=== PATIENT | female | born 1990 | race Caucasian/White ===

== ENCOUNTER 2022-12-31 23:21 | Emergency (ER) | payer OTHER, SELFPAY ==
[2022-12-31 23:23] VITALS: BP 133/88; PULSE 102; RESP 18; TEMP 36.6; O2SAT 100
--- NOTE | 2023-01-01 00:01 | ED.ABDPAIN ---
HPI - Abdominal Pain General Chief Complaint: GENERAL CLAIMS AGENT Stated Complaint: Abdominal Source: patient Mode of arrival: ambulatory Limitations: no limitations History of Present Illness HPI narrative: 32-year-old female status post BTL presents to the ER with a 2 day history of -- right lower quadrant abdominal pain. No nausea or vomiting. No dysuria. No abnormal vaginal discharge. No fever or chills the patient had been playing soccer with her kids 2 days ago. MD elicited complaint: abdominal pain Pertinent past history: none Onset (ago): day(s) ( Started 2 days ago) Pain Consistency: constant and other ( pain is constant with intermittent sharp exacerbation) Location: other ( right inguinal region) Severity: severe Quality: aching Radiation: none Migration to: no migration Exacerbating factors: movement Relieving factors: nothing Associated symptoms: denies other symptoms Related Data Home Medications Medication Instructions Recorded Confirmed No Home Medications 12/31/22 12/31/22 Allergies Allergy/AdvReac Type Severity Reaction Status Date / Time No Known Allergies Allergy Mild Verified 12/31/22 23:46 Review of Systems Review of Systems: All systems reviewed & are unremarkable except as noted in HPI and below Constitutional: Constitutional: Reports as per HPI and Reports no additional constitutional complaints Eyes: Eyes: Reports as per HPI and Reports no additional eye complaints ENT: Reports system reviewed and no additional complaints, except as documented and Reports as per HPI Cardiovascular: Cardiovascular: Reports as per HPI and Reports no additional cardiovascular complaints Respiratory: Respiratory: Reports as per HPI and Reports no additional respiratory complaints Gastrointestinal: Gastrointestinal: Reports as per HPI, Reports no additional gastrointestinal complaints and Reports abdominal pain Genitourinary: Genitourinary: Reports no additional female genitourinary complaints and Reports as per HPI Musculoskeletal: Musculoskeletal: Reports no additional musculoskeletal complaints and Reports as per HPI Integumentary/Breasts: Skin/Breast: Reports system reviewed and no additional complaints, except as docu and Reports as per HPI Neurologic: Reports system reviewed and no additional complaints, except as documented and Reports as per HPI Psychiatric: Psychiatric: Reports no additional psychiatric complaints and Reports as per HPI Endocrine: Endocrine: Reports no additional endocrine complaints and Reports as per HPI Hematologic/Lymphatic: Hematologic/Lymphatic: Reports no additional hematologic/lymphatic complaints and Reports as per HPI Allergic/Immunologic: Allergic/Immunologic: Reports no additional allergic/immunologic complaints and Reports as per HPI Exam Const: General: no acute distress Orientation/consciousness: patient oriented x3 HENMT: Head: normal to inspection Ears: external ears normal Face/Nose/Sinus: Normal external nose present Face and sinus: normal facial exam Mouth: Yes Normal oral and palatal mucosa present Throat: posterior oropharynx normal Eyes: Conjunctivae: conjunctivae normal Pupils: Equal, round and reactive pupils present EOM: EOMs intact bilaterally Direct Ophthalmoscopy: no photophobia Neck: Neck: normal visual inspection, no lymphadenopathy and no meningeal signs Chest: Chest palpation & inspection: normal inspection of the chest Resp: Effort & Inspection: normal respiratory effort Auscultation: clear to auscultation bilaterally Cardio: Rate: regular rate Rhythm: regular rhythm GI: GI Palp: Yes Soft to palpation Auscultation: normal bowel sounds Other: tenderness over the right inguinal region : General: Yes no CVA tenderness Urinary Catheter: Urinary Catheter: patent and draining Back/Spine/Pelvis: Back: no CVA tenderness Skin: General skin exam: normal color Rashes: no rashes Wounds: no wounds Neuro: General: patient oriente
[2023-01-01 00:28] LABS: Basophils Absolute Auto 0.01 K/mm3 (0.00-0.10); Basophils Percent Auto 0.1 % (0.0-1.0); Eosinophils Percent Auto 1.4 % (1.0-6.0); Hematocrit 37.8 % (35.0-49.0); Hemoglobin 12.5 g/dL (12.0-15.0); Immature Granulocyte Absolute 0.01 K/mm3 (0.00-0.00); Immature Granulocyte Percent A 0.1 % (0.0-0.0); Lymphocytes Absolute Auto 2.97 K/mm3 (1.10-4.50); Lymphocytes Percent Auto 41.8 % (18.0-42.0); Mean Corpuscular HGB Conc 33.1 g/dL (32.0-36.0); Mean Corpuscular Hemoglobin 31.3 pg (27.0-31.0); Mean Corpuscular Volume 94.5 fL (78.0-102.0); Mean Platelet Volume 9.6 fl (9.2-11.8); Monocytes Absolute Auto 0.53 K/mm3 (0.10-0.90); Monocytes Percent Auto 7.5 % (2.0-11.0); Neutrophils Absolute Auto 3.5 K/mm3 (1.7-7.2); Neutrophils Percent Auto 49.1 % (50.0-70.0); Platelet Count Result 213 K/mm3 (150-420); Red Cell Distribution Width 13.6 % (11.6-14.4); White Blood Count 7.1 K/mm3 (4.8-10.8)
[2023-01-01 00:36] LABS: Alanine Aminotransferase 20 U/L (14-59); Albumin Level 3.8 g/dL (3.4-5.0); Alkaline Phosphatase 62 U/L (46-116); Anion Gap 8 mmol/L (8-16); Aspartate Amino Transferase 17 U/L (15-37); Bilirubin,Total 0.3 mg/dL (0.00-1.00); Blood Urea Nitrogen 12 mg/dL (7-18); Calcium 8.5 mg/dL (8.5-10.1); Carbon Dioxide 29 mmol/L (21-32); Chloride 104 mmol/L (98-108); Estimated CRCL calculation 72 ml/min; Estimated Glomerular Filt Rate > 60; Glucose 104 mg/dL (70-99); Lipase 31 U/L (16-77); Osmolality Calculated 291 mOsm/kg (285-295); Potassium 3.4 mmol/L (3.5-5.1); Sodium 141 mmol/L (136-145); Total Protein 7.1 g/dL (6.4-8.2)
[2023-01-01 00:39] LABS: Appearance Urine Clear (Clear); Bilirubin Urine Negative (Negative); Blood Urine Negative (Negative); Color Urine Light Yellow (Yellow); Glucose Urine UA Negative (Negative); Ketones Urine Negative (Negative); Leukocyte Esterase Ur Negative LEU/UL (Negative); Nitrate Urine Negative (Negative); Protein Urine Negative (Negative); Specific Grav Ur 1.025 (1.010-1.020); Urobilinogen Urine 0.2 mg/dL (0.2-1.0)
[2023-01-01 00:40] LABS: Add Urine Microscopic? NO
[2023-01-01] MEDS: POTASSIUM CHLORIDE 20 MEQ TABLET PO (01:09)
[2023-01-01 01:20] VITALS: BP 114/78; PULSE 98; RESP 18; TEMP 36.4; O2SAT 99
== END 2023-01-01 01:26 | disposition home or self-care (01) ==
PROVIDERS: Emergency Provider Internal Medicine Critical Care Medicine
DX: M24.29 Disorder of ligament, other specified site (principal)
CPT/HCPCS: 36415; 80053; 81003; 83690; 85025; 99283; A9270

== ENCOUNTER 2023-11-07 10:27 | Outpatient (CLI) | payer OTHER, SELFPAY ==
--- NOTE | ~2023-11-07 | XR_ITS ---
Lumbosacral Spine: AP and lateral views Clinical History: Pain Findings: The normal lordotic curve is maintained. No fracture or sublocation evident. There is sever e degenerative disc narrowing at L2-L3. There is minimal facet arthropathy. The sacroiliac joints are normally outlined. There is a 1.3 cm calcified round lesion in the right mid abdomen, of uncertain e tiology. Impression: Degenerative change, overall mild in degree, as detailed above. Indeterminate 1.3 cm densely calcified lesion right mid abdomen. Reviewed, dictated and finalized at location M. SITE WASTEWATER SYSTEMS TECHNICIAN Impression: Degenerative change, overall mild in degree, as detailed above. Indeterminate 1.3 cm densely calcified lesion right mid abdomen.
--- NOTE | ~2023-11-07 | XR_ITS ---
Cervical Spine: AP, lateral, open-mouth views Clinical History: Pain Findings: The normal lordotic curve is maintained. The vertebral bodies and posterior elements appea r intact. The intervertebral disc spaces are well maintained. Pre-vertebral soft tissues are unremar kable. Impression: No significant abnormality is seen. Reviewed, dictated and finalized at [facility]. CTOR OF SUSTAINABILITY PROGRAMS Impression: No significant abnormality is seen.
== END 2023-11-07 10:28 | disposition home or self-care (01) ==
LOC: CHSIMG 10:29
PROVIDERS: PCP Family Medicine; Visit Provider Registered Nurse
DX: M54.2 Cervicalgia (principal); M54.16 Radiculopathy, lumbar region; R93.5 Abnormal findings on diagnostic imaging of other abdominal regions, including retroperitoneum
CPT/HCPCS: 72040; 72100

== ENCOUNTER 2023-11-13 13:49 | Outpatient (RCR) | payer OTHER, SELFPAY ==
--- NOTE | 2023-11-13 14:51 | OPREHPOC ---
Outpatient Therapy Plan of Care This is a Multidisciplinary Plan of Care that may contain components documented by all disciplines (PT, OT, and ST.) PT Problem 1 PT Problem #1 Knowledge Deficit PT Goal 1 Goal Patient to demonstrate independence with HEP Target Visit 5 PT Problem 2 PT Problem #2 Pain PT Goal 1 Goal 1. Patient to report highest pain at 2/10 2. patient to report ability to sleep with no disturbance due to neck pain Target Visit 10 PT Problem 3 PT Problem #3 Impaired Strength PT Goal 1 Goal Patient to demonstrate 5/5 B UE strength to return to house hold tasks at PLOF Target Visit 10 PT Problem 4 PT Problem #4 Impaired Functional Mobil PT Goal 1 Goal 1. Patient to score 20% improvement on NDI 2. patient to report no occurrence of headaches for 1 week 3. patient to report ability to drive to work with no increase in pain Target Visit 10
--- NOTE | 2023-11-13 14:51 | PTOPEVAL1 ---
Assessment and note entered by Edda Sarkar DPT Evaluation Information Assessment Status Evaluation Diagnosis neck pain, B UE numbness Onset 10/31/23 Subjective Information Patient reports about 9 months ago she started to notice neck pain with B UE numbness to fingertips but does not recall an injury. She reports that pain has progressively gotten worse. She reports that occasionally she will notice that numbness to fingers is just at the 3rd and 4th fingers but reports sometimes it is all. She reports she wakes up multiple times with numbness and pain. She reports that sitting to drive makes her pain worse and standing for long periods of time make pain worse. She reports that she does also have headaches. She works for [employer]. Prior to 9 months ago, she did not have the above limitations . Reported Pain Level Pain Score 5,7: Self Report Assessment PT Clinical Summary Ms. Owens is a 33 year old female who presents to with neck pain and B UE numbness. She demonstrates impaired posture, decreased UE strength and tightness to B upper traps impairing her ability to drive, sleep and stand to complete house hold tasks. She would benefit from skilled PT to address impairments and return to PLOF. Plan of Care Interventions Electrical Stimulation,Hot Pack/Cold Pack,Manual Therapy,Mechanical Traction,Neuro Re-education, Paraffin Bath,Prosthetic Training,Therapeutic Exercise PT Services Indicated Yes Treatment Frequency and 2x weekly for 10 visits Duration These treatments will address the objective and functional deficits as defined above. The patient will be advanced safely and appropriately in order for the patient to progress towards his/her prior level of function. Additional exercises will be introduced and as well as a comprehensive home exercise program upon discharge, if needed, ?to ensure carryover of functional gains achieved in the clinic. This treatment plan has been reviewed and agreement upon by the patient.
--- NOTE | 2023-11-19 11:18 | PCPTNOTE ---
No call, no show. Patient was called, voicemail left.
--- NOTE | 2023-11-21 14:02 | PCPTNOTE ---
Patient cancelled session today. Patient reports she cannot make it in.
== END 2023-11-13 14:41 | disposition home or self-care (01) ==
LOC: CHSPT 13:49
PROVIDERS: PCP Family Medicine; Visit Provider Registered Nurse
DX: M54.2 Cervicalgia (principal)
CPT/HCPCS: 97110; 97140; 97161

== ENCOUNTER 2024-03-31 15:23 | Emergency (ER) | payer OTHER, SELFPAY ==
--- NOTE | ~2024-03-31 | XR_ITS ---
EXAMINATION: XR ankle RT min 3V DATE: 03/31/2024 16:13 INDICATION: Right ankle pain. TECHNIQUE: 3 views of right ankle were obtained. COMPARISON: None. FINDINGS: Bone alignment is normal. No fracture. Joint spaces are normal. IMPRESSION: 1. Normal right ankle. Reviewed, dictated and finalized at location E. IMPRESSION: 1. Normal right ankle.
--- NOTE | ~2024-03-31 | XR_ITS ---
XR tibia fibula RT 2V Ordering provider: Yuri Hernandez MD History: . leg injury . Comparison: None. FINDINGS: BONES: No acute fracture or dislocation. JOINT SPACES: Normal. SOFT TISSUES: Normal. IMPRESSION: No acute osseous abnormality right leg. Reviewed, dictated and finalized at location A.
[2024-03-31 15:25] VITALS: BP 118/83; PULSE 86; RESP 20; TEMP 36.7; O2SAT 100
--- NOTE | 2024-03-31 15:31 | ED.LOWEXIN ---
HPI - Extremity Injury (Lower) General Chief Complaint: Extremity Injury, Lower Stated Complaint: LEG PAIN Time Seen by Provider: 03/31/24 15:30 Source: patient Mode of arrival: ambulatory Limitations: no limitations History of Present Illness HPI Narrative: 33-year-old female kicked the kitchen chair which rebounded and hit her on the right davies 3 days ago. The patient presents with -- right davies pain / swelling with an abrasion -- right ankle pain. The patient is ambulatory and able to bear weight. No other injuries noted. MD complaint: leg injury Onset (ago): day(s) ( Three days ago) Injury: Right: ankle Type of Injury: blunt Place: home Severity: moderate Relieving factors: nothing Exacerbating factors: nothing Related Data Home Medications Medication Instructions Recorded Confirmed No Home Medications 12/31/22 12/31/22 Allergies Allergy/AdvReac Type Severity Reaction Status Date / Time No Known Allergies Allergy Mild Verified 12/31/22 23:46 Review of Systems Review of Systems: All systems reviewed & are unremarkable except as noted in HPI and below Exam Const: General: healthy appearing and no acute distress Nutritional Appearance: well nourished Orientation/consciousness: patient oriented x3 Limitations: no limitations HENMT: Head: normal to inspection Ears: external ears normal Face/Nose/Sinus: Normal external nose present Face and sinus: normal facial exam Eyes: Conjunctivae: conjunctivae normal Pupils: Equal, round and reactive pupils present EOM: EOMs intact bilaterally Neck: Neck: normal visual inspection, no lymphadenopathy and no meningeal signs Chest: Chest palpation & inspection: normal inspection of the chest Resp: Effort & Inspection: normal respiratory effort Auscultation: clear to auscultation bilaterally Cardio: Rate: regular rate Rhythm: regular rhythm GI: GI Palp: Yes Soft to palpation : General: Yes no CVA tenderness Back/Spine/Pelvis: Back: no CVA tenderness Skin: Rashes: no rashes Wounds: no wounds Other: right davies abrasion with redness/swelling Neuro: General: patient oriented x3, moves all extremities, no meningeal signs, no focal motor deficits and CN's II-XI intact bilaterally Cranial nerves: Yes Nystagmus not present Speech: normal speech Gait exam (Neuro): Normal gait present Extrem: General: no clubbing, cyanosis or edema Other: right davies an abrasion with redness and swelling. Tender on palpation. Right ankle-- tenderness around lateral malleolus Psych: Mental Status: mental status grossly normal Affect: normal affect Attitude: cooperative Course Course Emergency Course: right ankle pain- ankle did not show any acute findings right davies contusion- right tib-fib x-ray was unremarkable. Vital Signs Vital signs: Vital Signs Temperature 36.7 C 03/31/24 15:25 Pulse Rate 86 03/31/24 15:25 Respiratory Rate 20 03/31/24 15:25 Blood Pressure 118/83 03/31/24 15:25 Pulse Oximetry 100 03/31/24 15:25 Oxygen Delivery Room Air 03/31/24 15:25 Temperature 36.7 C 03/31/24 15:25 Pulse Rate 86 03/31/24 15:25 Respiratory Rate 20 03/31/24 15:25 Blood Pressure 118/83 03/31/24 15:25 Pulse Oximetry 100 03/31/24 15:25 Oxygen Delivery Room Air 03/31/24 15:25 MDM - Extremity Injury (Lower) MDM Narrative Medical decision making narrative: Right ankle pain right davies contusion Differential Diagnosis Differential diagnosis: Likely ankle sprain and strain and other ( leg fracture) Medical Records Attestation: I reviewed the patient's medical records. Lab Data Labs: Lab Results 03/31/24 Range/Units 15:45 Urine Test Negative Discharge Plan Discharge Clinical Impression: Acute ankle pain Patient Disposition: Home, Self-Care Condition: Stable Instructions: Antibiotic Form, Contusion in Adults (ED), Arthralgia (ED) Patient Language: Bk
[2024-03-31 15:54] LABS: Pregnancy On Board Control Positive; Urine Pregnancy Test Negative
[2024-03-31 16:46] VITALS: BP 118/75; PULSE 86; RESP 20; O2SAT 100
== END 2024-03-31 16:46 | disposition home or self-care (01) ==
PROVIDERS: Emergency Provider Internal Medicine Critical Care Medicine; PCP Family Medicine
DX: M25.571 Pain in right ankle and joints of right foot (principal)
CPT/HCPCS: 73590; 73610; 81025; 99284

== ENCOUNTER 2025-05-07 05:18 | Emergency (ER) | payer MEDICAID, SELFPAY ==
[2025-05-07 05:18] VITALS: BP 123/84; PULSE 88; RESP 18; TEMP 36.4; O2SAT 98
--- OUTSIDE RECORDS SUMMARY | 2025-05-07 05:19 | XMS_ITS | Encounter Summary ---
Author Organization [facility] Address [address] [place] [address] Care Team Providers Care Maintenance Controller Name Role Phone Matthew Zhong MD Primary Care Provider [phone] Encounter Details Date Type Department Care Team ([facility] st Contact Info) Description 02/23/2008 Outpatient Historical [facility] [address] [place] [address] Christ Rivera MD [address] [place] [address] [address] [place] [address] Social History Tobacco Use Types Packs/Day Years Used Date Smoking Tobacco: Never Assessed Comments Unknown Sex and Gender Information Value Date Recorded Sex Assigned at Not on file 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
--- OUTSIDE RECORDS SUMMARY | 2025-05-07 05:19 | XMS_ITS | Encounter Summary ---
Author Organization [employer] Address [address] [place] [address] Care Team Providers Care Third Mate Name Role Phone Matthew Zhong MD Primary Care Provider [phone] Encounter Details Date Type Department Care Team (Latest Contact Info) Description 10/01/2007 Outpatient Historical [facility] Diomedes Casarez MD 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
--- OUTSIDE RECORDS SUMMARY | 2025-05-07 05:19 | XMS_ITS | Encounter Summary ---
Author Organization [facility] Address [address] [place] [address] Care Team Providers Care Tile Ditcher Name Role Phone Matthew Zhong MD Primary Care Provider [phone] Encounter Details Date Type Department Care Team ([facility] st Contact Info) Description 03/17/2008 Outpatient Historical [facility] [address] [place] [address] Social History Tobacco Use Types Packs/Day Years Used Date Smoking Tobacco: Never Assessed Comments Unknown Sex and Gender Information Value Date Recorded Sex Assigned at Not on file 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
--- OUTSIDE RECORDS SUMMARY | 2025-05-07 05:19 | XMS_ITS | Clinical Summary ---
Author Organization [facility] Address [address] [place] [address] Care Team Providers Care Mechanic Chief Name Role Phone Matthew Zhnog MD Primary Care Provider [phone] Allergies Active Allergy Reactions Criticality Noted Date Comments Penicillins Hives High 02/07/2025 Medications No known medications Active Problems No known active problems Encounters Date Type Department Care Team Description 04/27/2025 External Device Data [facility] ABSTRACTION Provider, Abstract 04/26/2025 External Device Data [facility] ABSTRACTION Provider, Abstract 04/06/2025 External Device Data [facility] ABSTRACTION Provider, Abstract 04/05/2025 External Device Data [facility] ABSTRACTION Provider, Abstract 03/22/2025 External Device Data [facility] ABSTRACTION Provider, Abstract 03/18/2025 10:00 AM CDT Office Visit [facility] at the [facility] [address] [place] [phone] Dave Gar MD Bilateral carpal tunnel syndrome (Primary Dx) 03/15/2025 External Device Data [facility] ABSTRACTION Provider, Abstract 03/08/2025 External Device Data [facility] ABSTRACTION Provider, Abstract 03/04/2025 3:55 PM CDT - 03/04/2025 4:27 PM CDT Surgery [facility] [address] [place] [address] Dave Gar MD LEFT CARPAL TUNNEL RELEASE 03/04/2025 2:14 PM CDT - 03/04/2025 4:29 PM CDT Hospital Encounter [facility] [address] [place] [address] Dave Gar MD Carpal tunnel syndrome on left Discharge Disposition: Home or Self Care 02/22/2025 Prep for Surgery [facility] at the [address] [place] [address] Joycelyn Malave PCT Pre-op testing (Primary Dx) 02/10/2025 External Device Data [facility] ABSTRACTION Provider, Abstract 02/09/2025 External Device Data [facility] ABSTRACTION Provider, Abstract 02/08/2025 External Device Data [facility] ABSTRACTION Provider, Abstract 02/07/2025 2:00 PM CDT Office Visit [facility] at the [address] [place] [address] [place] [address] Dave Gar MD Bilateral carpal tunnel syndrome (Primary Dx) 02/07/2025 Orders Only [facility] at the [address] [place] [address] [place] [address] Dave Gar MD 02/07/2025 Chart Note [facility] at the [address] [place] [address] [place] [address] Dave Gar MD from Last 3 Months Social History Tobacco Use Types Packs/Day Years Used Date Smoking Tobacco: Every Day Cigarettes Passive Smoke Exposure: Current Tobacco Cessation:Ready to Q uit: Not Asked; Counseling Given: Not Answered Comments No Sex and Gender Information Value Date Recorded Sex Assigned at Not on file 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 Gender Identity Not on file Sexual Orientation Not on file Last Filed Vital Signs Vital Sign Reading Time Taken Comments Blood Pressure 118/73 03/04/2025 4:24 PM CDT Pulse 78 03/04/2025 4:24 PM CDT Temperature 36.1 C (97 F) 03/04/2025 4:24 PM CDT Respiratory Rate 16 03/04/2025 4:24 PM CDT Oxygen Saturation 99% 03/04/2025 4:24 PM CDT Inhaled Oxygen Concentration - - Weight 61.2 kg (135 lb) 03/18/2025 10:15 AM CDT Height 160 cm (5' 3) 03/18/2025 10:15 AM CDT Body Mass Index 23.91 03/18/2025 10:15 AM CDT Plan of Treatment Health Maintenance Due Date Last Done Comments HPV VACCINES (1 - 3-dose series) 2004 DTAP/TDAP/TD VACCINES (1 - Tdap) 2008 HEPATITIS B VACCINES (1 of 3 - 19+ 3-dose series) 04/2008 HPV/Cotest (21-29) 2010 CERVICAL CANCER SCREENING 2019 HPV/Cotest (30-65) 2019 PAP SMEAR 2019 INFLUENZA VACCINE (#1) 2025 Procedures Procedure Name Priority Date/Time Associated Diagnosis Comments GA NEUROPLASTY &/TRANSPOS MEDIAN NRV CARPAL TUNNE 03/04/2025 3:55 PM CDT Carpal tunnel syndrome on left from Last 3 Months Insurance [employer] Commercial RX [employer] (INTERNAL) [facility] Internal Plans Advance Directives For more information, please contact: [phone] * Full Code (Latest Code Status on File) Date Activated Date Inactivated Comments 03/04/2025 2:27 PM 03/04/2025 6:34 PM Care Teams Mechanic Chief Relationship Specialty Start Date End Date Matthew Zhong MD [address] [place] [phone] PCP - General Family Practice 09/21/24
--- OUTSIDE RECORDS SUMMARY | 2025-05-07 05:19 | XMS_ITS | Encounter Summary ---
Author Organization [employer] Address 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
--- OUTSIDE RECORDS SUMMARY | 2025-05-07 05:19 | XMS_ITS | Encounter Summary ---
Author Organization [facility] Address [address] [place] [address] Care Team Providers Care Revenue Manager Name Role Phone Matthew Zhong MD Primary Care Provider [phone] Encounter Details Date Type Department Care Team ([facility] st Contact Info) Description 07/12/2008 Outpatient Historical [facility] [address] [place] [phone] Rosalee Springer MD [address] [place] [phone] Social History Tobacco Use Types Packs/Day Years Used Date Smoking Tobacco: Never Assessed Comments Unknown Sex and Gender Information Value Date Recorded Sex Assigned at Not on file 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
--- OUTSIDE RECORDS SUMMARY | 2025-05-07 05:19 | XMS_ITS | Encounter Summary ---
Author Organization [facility] Address [address] [place] [address] Care Team Providers Care Hand Cigar Making Supervisor Name Role Phone Matthew Zhong MD Primary Care Provider [phone] Encounter Details Date Type Department Care Team (Late st Contact Info) Description 02/12/2008 Outpatient Historical [facility] [address] [place] [phone] Demetra Moreno Social History Tobacco Use Types Packs/Day Years Used Date Smoking Tobacco: Never Assessed Comments Unknown Sex and Gender Information Value Date Recorded Sex Assigned at Not on file Legal Sex Female 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
--- OUTSIDE RECORDS SUMMARY | 2025-05-07 05:19 | XMS_ITS | Encounter Summary ---
Author Organization [employer] Address [address] [place] [address] Care Team Providers Care Study Abroad Coordinator Name Role Phone Matthew Zhong MD Primary Care Provider [phone] Encounter Details Date Type Department Care Team (Late st Contact Info) Description 08/23/2008 Emergency [facility], Authorized P NO ADDRESS ON FILE Sukhdeep Riddle MD [address] [place] [address] [place] [address] Social History Tobacco Use Types Packs/Day Years Used Date Smoking Tobacco: Never Assessed Comments Unknown Sex and Gender Information Value Date Recorded Sex Assigned at Not on file Legal Sex Female 5:04 AM HUMAN RESOURCES FILE CLERK Gender Identity Not on file Sexual Orientation Not on file documented as of this encounter Plan of Treatment Not on file documented as of this encounter Visit Diagnoses Not on filedocumented in this encounter Care Teams Study Abroad Coordinator Relationship Specialty Start Date End Date Matthew Zhong MD [address] [place] [phone] PCP - General Family Practice 09/21/24 documented as of this encounter
--- OUTSIDE RECORDS SUMMARY | 2025-05-07 05:19 | XMS_ITS | Encounter Summary ---
Author Organization [employer] Address [address] [place] [address] Care Team Providers Care Wedding Coordinator Name Role Phone Matthew Zhong MD Primary Care Provider [phone] Encounter Details Date Type Department Care Team (Latest Contact Info) Description 07/12/2008 Outpatient Historical [facility] Rosalee Springer MD [address] [place] [phone] Diomedes Casarez MD [facility] 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
--- OUTSIDE RECORDS SUMMARY | 2025-05-07 05:19 | XMS_ITS | Encounter Summary ---
Author Organization [employer] Address [address] [place] [address] Care Team Providers Care B2B Appointment Setter Name Role Phone Matthew Zhong MD Primary Care Provider [phone] Encounter Details Date Type Department Care Team (Latest Contact Info) Description 04/04/2008 Outpatient Historical [facility] Aurelia Casarez MD [address] [place] [phone] Mild Dysplasia of Cervix Social History Tobacco Use Types Packs/Day Years Used Date Smoking Tobacco: Never Assessed Comments Unknown Sex and Gender Information Value Date Recorded Sex Assigned at Not on file Legal Sex Female 5:04 AM GEOGRAPHIC ANALYST Gender Identity Not on file Sexual Orientation Not on file documented as of this encounter Plan of Treatment Not on file documented as of this encounter Procedures Procedure Name Priority Date/Time Associated Diagnosis Comments PATHOLOGY Routine 04/11/2008 11:29 AM CDT URINALYSIS W/REFLEX MICROSCOPIC Stat 04/08/2008 11:40 AM CDT URINE CULTURE Timed Study 04/08/2008 11:40 AM CDT documented in this encounter Results * PATHOLOGY (04/11/2008 11:29 AM CDT) FINAL REPORT [address] [address] Patient: CELSA OWENS : 1990 Procedure Date: 04/11/2008 Accession Date: 04/11/2008 Case No: [id number] Ordering Dr: AURELIA CASAREZ Case types AW, BW, FW, NW and SH are performed by [facility] [place], [place], [place] SURGICAL PATHOLOGY & NON-GYNECOLOGIC CYTOPATHOLOGY REPORT DIAGNOSIS CERVIX, FIRST PASS, CONIZATION: - MODERATE DYSPLASIA (KATERIN II), SEE DESCRIPTION. CERVIX, DEEP PASS, CONIZATION: - MODERATE DYSPLASIA (KATERIN II). Specimen Description: Uterine Cervix,LEEP,First Specimen Uterine Cervix,LEEP,Additi onal Specimen Operative Procedure: Loop electrosurgical excision procedure. Patient Information/Histor y/Diagnosis: High-grade cervical dysplasia. Gross: The specimens are received in two containers, each labeled with the patient's name, Celsa Owens. The first specimen is additionally labeled LEEP first pass and consists of a conization specimen measuring 2.3 cm in diameter and up to 0.5 cm in thickness. The surgical margin is inked black. The entire specimen is sectioned and submitted in cassettes labeled A1 through A4. The second specimen is additionally labeled LEEP deep pass and consists of two pieces of cervix measuring 1.4 and 1.1 cm in greatest dimension. The surgical margin is inked black. The largest piece is sectioned and submitted in cassette labeled B1. The smaller piece is sectioned and submitted in cassette labeled B2. [facility] 04.12.2008 06:11 am Microscopic: The slides are labeled Celsa Owens, [id number]. Sections of the first pass of the conization specimen show up to moderate dysplasia. There is no evidence of an invasive malignancy. Dysplasia focally is seen at the endocervical margin. The ectocervical margin appears to be uninvolved by dysplasia. Sections of the deep pass of the conization show moderate dysplasia. There is no evidence of an invasive malignancy. What appears to be the new endocervical margin is not involved by dysplasia. [facility]/ 04.12.2008 12:47 pm Staging Form: N/A. ELECTRONIC SIGNATURE FOR NINOSKA PRYOR M.D.- 04/12/08 02:03 pm INTERFACE SYSTEM 04/11/2008 11:2 9 AM CDT us Aurelia Casarez MD PATHOLOGY/CYTOLOGY ORDERABLES Final Result Performing Organization Address City/[facility] de Phone Number INTERFACE SYSTEM Refer to clinic/hospital department * URINALYSIS (04/08/2008 11:40 AM CDT) BILIRUBIN UA Negative Negative [facility] PH UA 5.0 5.0 - 8.0 [facility] KETONES UA Negative Negative [facility] CLARITY UA Clear Clear [facility] BLOOD UA Negative Negative [facility] PROTEIN UA Negative Negative [facility] LEUKOCYTE ESTERASE UA Negative Negative [facility] UROBILINOGEN UA <1 <1 mg/dL [facility] SPECIFIC GRAVITY UA 1.025 1.001 - 1.035 [facility] GLUCOSE UA Negative Negative [facility] COLOR UA Yellow [facility] NITRITE UA Negative Negative [facility] Urine specimen (specimen) 04/08/2008 11:40 AM CDT 04/08/2008 11:45 AM CDT us Aurelia Casarez MD URINE ORDERABLES Final Result Performing Organization Address [facility] de Phone Number [facility] CLIA# [id number] [address] [place] [address] * URINE CULTURE (04/08/2008 11:40 AM CDT) PRELIMINARY REPORT Pending [facility] FINAL REPORT 10-50,000 colonies/mL Polymicrobial growth consistent with normal urethral rui [facility] 04/08/2008 11:4 0 AM CDT 04/08/2008 12:25 PM CDT us Aurelia Casarez MD MICROBIOLOGY - GENERAL ORDERAB LES Final Result Performing Organization Address City/[facility] Co de Phone Number [facility] CLIA# [id number] [address] [place] [address] documented in this encounter Visit Diagnoses Diagnosis Mild dysplasia of cervix documented in this encounter Care Teams B2B Appointment Setter Relationship Specialty Start Date End Date Matthew Zhong MD [address] [place] [phone] PCP - General Family Practice 09/21/24 documented as of this encounter
--- OUTSIDE RECORDS SUMMARY | 2025-05-07 05:19 | XMS_ITS | Encounter Summary ---
Author Organization [facility] Address [address] [place] [address] Care Team Providers Care Professional Bass Fisher Name Role Phone Matthew Zhong MD Primary Care Provider [phone] Encounter Details Date Type Department Care Team ([facility] st Contact Info) Description 07/12/2008 Outpatient Historical [facility] [address] [place] [phone] Diomedes Casarez MD 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
--- OUTSIDE RECORDS SUMMARY | 2025-05-07 05:19 | XMS_ITS | Encounter Summary ---
Author Organization [employer] Address [address] [place] [address] Care Team Providers Care Crusher Foreman Name Role Phone Matthew Zhong MD Primary Care Provider [phone] Encounter Details Date Type Department Care Team (Late st Contact Info) Description 01/20/2008 Emergency [facility] Er, Authorized P NO ADDRESS ON FILE Edgard Melchor MD [address] [place] [phone] Social History Tobacco Use Types Packs/Day Years Used Date Smoking Tobacco: Never Assessed Comments Unknown Sex and Gender Information Value Date Recorded Sex Assigned at Not on file Legal Sex Female 5:04 AM DENTAL SERVICES DIRECTOR Gender Identity Not on file Sexual Orientation Not on file documented as of this encounter Plan of Treatment Not on file documented as of this encounter Visit Diagnoses Not on filedocumented in this encounter Care Teams Crusher Foreman Relationship Specialty Start Date End Date Matthew Zhong MD [address] [place] [phone] PCP - General Family Practice 09/21/24 documented as of this encounter
--- OUTSIDE RECORDS SUMMARY | 2025-05-07 05:20 | XMS_ITS | Encounter Summary ---
Author Organization [employer] Address [address] [place] [address] Care Team Providers Care Clinical Esthetician Name Role Phone Matthew Zhong MD Primary Care Provider [phone] Encounter Details Date Type Department Care Team (Late st Contact Info) Description 06/08/2007 Emergency [facility] Gaye Jerez MD [address] [place] [address] [place] [address] Infections of Genitourinary Tract Antepartum (Primary Dx) Social History Tobacco Use Types Packs/Day Years Used Date Smoking Tobacco: Never Assessed Comments Unknown Sex and Gender Information Value Date Recorded Sex Assigned at Not on file Legal Sex Female 5:04 AM DIRECTOR OF VENDOR MANAGEMENT Gender Identity Not on file Sexual Orientation Not on file documented as of this encounter Plan of Treatment Not on file documented as of this encounter Procedures Procedure Name Priority Date/Time Associated Diagnosis Comments URINALYSIS W/REFLEX MICROSCOPIC Routine 06/08/2007 5:05 PM CDT URINALYSIS W/REFLEX MICROSCOPIC Routine 06/08/2007 5:05 PM CDT HCG QUALITATIVE, URINE Routine 06/08/2007 5:05 PM CDT documented in this encounter Results * (ABNORMAL) URINALYSIS (06/08/2007 5:05 PM CDT) WBC UA 5-10(A) 0 - 5 /HPF INTERFACE SYSTEM RBC UA 0-2 0 - 2 /HPF INTERFACE SYSTEM BACTERIA UA 2+(A) None Seen /HPF INTERFACE SYSTEM EPITHELIAL CELLS, URINE Many /HPF INTERFACE SYSTEM 06/08/2007 5:05 PM CDT Gaye Saldivar MD URINE ORDERABLES Edited Performing Organization Address [facility] Phone Number INTERFACE SYSTEM Refer to clinic/hospital department * (ABNORMAL) URINALYSIS (06/08/2007 5:05 PM CDT) MACRO COMMENT Culture in Progress INTERFACE SYSTEM COLOR UA Yellow INTERFACE SYSTEM CLARITY UA Slt. Cloudy(A) Clear INTERFACE SYSTEM SPECIFIC GRAVITY UA 1.025 1.001 - 1.035 INTERFACE SYSTEM PH UA 5.0 5.0 - 8.0 INTERFACE SYSTEM LEUKOCYTE ESTERASE UA Trace(A) Negative INTERFACE SYSTEM NITRITE UA Positive(A) Negative INTERFA CE SYSTEM PROTEIN UA Trace(A) Negative INTERFACE SYSTEM GLUCOSE UA Negative Negative INTERFACE SYSTEM KETONES UA 3+(A) Negative INTERFACE SYSTEM UROBILINOGEN UA <1 <1 mg/dL INTE RFACE SYSTEM BILIRUBIN UA 1+(A) Negative INTERFA CE SYSTEM BLOOD UA 1+(A) Negative INTERFACE SYSTEM 06/08/2007 5:05 PM CDT Result [facility] Gaye Saldivar MD URINE ORDERABLES Edited Performing Organization Address [facility] Phone Number INTERFACE SYSTEM Refer to clinic/hospital department * (ABNORMAL) BETA HCG QUALITATIVE, URINE (06/08/2007 5:05 PM CDT) HCG QUAL URINE Positive( A) Negative INTERFACE SYSTEM Comment:Verified by repeat a nalysis. SPECIFIC GRAVITY UA 1.025 1.001 - 1.035 INTERFACE SYSTEM 06/08/2007 5:05 PM CDT Result [facility] Gaye Saldivar MD URINE ORDERABLES Edited Performing Organization Address [facility] Phone Number INTERFACE SYSTEM Refer to clinic/hospital department documented in this encounter Visit Diagnoses Diagnosis Infections of genitourinary tract antepartum- Primary documented in this encounter Care Teams Clinical Esthetician Relationship Specialty Start Date End Date Matthew Zhong MD [address] [place] [phone] PCP - General Family Practice 09/21/24 documented as of this encounter
--- OUTSIDE RECORDS SUMMARY | 2025-05-07 05:20 | XMS_ITS | Encounter Summary ---
Author Organization [facility] Address [address] [place] [address] Care Team Providers Care Rigging And Controls Aircraft Mechanic Name Role Phone Matthew Zhong MD Primary Care Provider [phone] Encounter Details Date Type Department Care Team (Late st Contact Info) Description 09/24/2007 Outpatient Historical [facility] [place] [address] [place] [phone] Diomedes Casarez MD 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
--- OUTSIDE RECORDS SUMMARY | 2025-05-07 05:20 | XMS_ITS | Encounter Summary ---
Author Organization [employer] Address [address] [place] [address] Care Team Providers Care Medical Social Worker Name Role Phone Matthew Zhong MD Primary Care Provider [phone] Encounter Details Date Type Department Care Team (Latest Contact Info) Description 07/30/2007 Outpatient Historical [facility] Kristine Tomas FNP [address] [address] Supervision of Normal First (Primary Dx) Social History Tobacco Use Types Packs/Day Years Used Date Smoking Tobacco: Never Assessed Comments Unknown Sex and Gender Information Value Date Recorded Sex Assigned at Not on file Legal Sex Female 5:04 AM STEEL PLATE PRINTER Gender Identity Not on file Sexual Orientation Not on file documented as of this encounter Plan of Treatment Not on file documented as of this encounter Procedures Procedure Name Priority Date/Time Associated Diagnosis Comments DRUG SCREEN, URINE Routine 07/30/2007 4: 05 PM STEEL PLATE PRINTER HIV DETECTION W/REFLX CONFIRMATION Routine 07/30/2007 4:00 PM STEEL PLATE PRINTER TSH WITH REFLEX FT4 AND FT3 Routine 07/30/2007 4:00 PM STEEL PLATE PRINTER HEPATITIS C AB W/CONFIRMATION Routine 07/30/2007 4:00 PM STEEL PLATE PRINTER HEPATITIS B SURFACE ANTIGEN Routine 07/30/2007 4:00 PM STEEL PLATE PRINTER RUBELLA IGG Routine 07/30/2007 4:00 PM STEEL PLATE PRINTER CBC WITH DIFFERENTIAL Routine 07/30/2007 4:00 PM STEEL PLATE PRINTER CBC WITH DIFFERENTIAL Routine 07/30/2007 4:00 PM STEEL PLATE PRINTER RPR Routine 07/30/2007 4:00 PM STEEL PLATE PRINTER documented in this encounter Results * DRUG SCREEN, URINE (07/30/2007 4:05 PM STEEL PLATE PRINTER) COMMENT, TOXICOLOGY See Separate Comment INTERFACE SYSTEM Comment: The urine sample was not handled as a legal specimen and was received wi thout a chain of custody. The results should be used only for medical purposes. A confirmation is recommended for all presumptive positive results. A negative result indicates the analyte, if present, is below the screening threshold. Drug Ref. Range Screening Threshold Amphetamines Negative 500 ng/mL Barbiturates Negative 200 ng/mL Benzodiazepines Negative 100 ng/mL Cannabinoids Negative 50 ng/mL Cocaine Metabolite Negative 300 ng/mL Opiate Negative 300 ng/mL Phencyclidine Negative 25 ng/mL AMPHETAMINE QUAL, URINE Negative INTERFACE SYSTEM BARBITURATE QUAL, URINE Negative INTERFACE SYSTEM BENZODIAZEPINE QUAL, URINE Negative INTERFACE SYSTEM CANNABINOIDS QUAL, URINE Negative INTERFACE SYSTEM COCAINE QUAL URINE Negative I NTERFACE SYSTEM OPIATE QUAL, URINE Negative I NTERFACE SYSTEM PCP QUAL, URINE Negative INTE RFACE SYSTEM 07/30/2007 4:05 PM STEEL PLATE PRINTER us Kristine [place] [place] STREETCAR REPAIRER HELPER URINE ORDERABLES Edited INTERFACE SYSTEM Refer to clinic/hospital department * CBC WITH DIFFERENTIAL (07/30/2007 4:00 PM STEEL PLATE PRINTER) NEUTROPHILS 69 45 - 70 % INTERFAC E SYSTEM LYMPHOCYTES 23 16 - 45 % INTERFAC E SYSTEM MONOCYTES 7 3 - 13 % INTERFACE SYSTEM EOSINOPHILS 1 0 - 7 % INTERFAC E SYSTEM BASOPHILS 0 0 - 2 % INTERFACE SYSTEM NEUTROPHIL ABSOLUTE 4.76 1.90 - 7.00 K/uL INTERFACE SYSTEM LYMPHOCYTE ABSOLUTE 1.60 0.70 - 4.50 K/uL INTERFACE SYSTEM MONOCYTE ABSOLUTE 0.48 0.10 - 1.30 K/uL INTERFACE SYSTEM EOSINOPHIL ABSOLUTE 0.04 0.00 - 0.70 K/uL INTERFACE SYSTEM BASOPHILS ABSOLUTE 0.01 0.00 - 0.20 K/uL INTERFACE SYSTEM 07/30/2007 4:00 PM STEEL PLATE PRINTER [employer] EGT STREETCAR REPAIRER HELPER HEMATOLOGY ORDERABLES Edited Performing Organization Address City/[facility] Phone Number INTERFACE SYSTEM Refer to clinic/hospital department * (ABNORMAL) CBC WITH DIFFERENTIAL (07/30/2007 4:00 PM STEEL PLATE PRINTER) WBC 6.9 4.0 - 9.8 K/uL INTERFACE SYSTEM RBC 3.56(L) 3.90 - 4.90 M/uL INTERFACE SYSTEM HEMOGLOBIN 11.2(L) 11.8 - 14.8 g/dL INTERFACE SYSTEM HEMATOCRIT 32.1(L) 35.5 - 44.0 % INTERFACE SYSTEM MCV 90.2 82.0 - 99.0 fL INTERFACE SYSTEM MCH 31.5 27.2 - 32.6 pg INTERFACE SYSTEM MCHC 34.9 31.5 - 35.5 % INTERFACE SYSTEM RDW 12.6 11.5 - 14.5 % INTERFACE SYSTEM RDW-STDEV 41.4 37.1 - 48.7 fL INTERFACE SYSTEM PLATELETS 156 140 - 350 K/uL INTERFACE SYSTEM MPV 10.5 9.3 - 12.4 fL INTERFACE SYSTEM 07/30/2007 4:00 PM STEEL PLATE PRINTER [employer] STREETCAR REPAIRER HELPER HEMATOLOGY ORDERABLES Edited Performing Organization Address [facility] Phone Number INTERFACE SYSTEM Refer to clinic/hospital department * TSH WITH REFLEX FT4 AND FT3 (07/30/2007 4:00 PM STEEL PLATE PRINTER) TSH 1.25 0.27 - 4.20 uU/mL INTERFACE SYSTEM 07/30/2007 4:00 PM STEEL PLATE PRINTER [employer] STREETCAR REPAIRER HELPER CHEMISTRY ORDERABLES Edited Performing Organization Address City/[facility] Phone Number INTERFACE SYSTEM Refer to clinic/hospital department * HIV ANTIBODY W/REFLX CONFIRMATION (07/30/2007 4:00 PM STEEL PLATE PRINTER) Pathologist [facility] HIV-1 AND 2 ABS NON-REACTI VE NON-REACT DOM INTERFACE SYSTEM Comment: Effective February 23, 2007, HIV 1/2 Antibody Screen with Reflexed Confirmati on has replaced HIV-1 Antibody Screen. HIV-1 Antibody Screen is no longer offered due to lack of available kits from the ship rigger apprentice. A NON-REACTIVE HIV 1/2 ANTIBODY RESULT DOES NOT EXCLUDE HIV INFECTION SINCE THE TIME FRAME FOR SEROCONVERSION IS VARIABLE. IF ACUTE HIV INFECTION IS SUSPECTED, ANTIBODY RETESTING AND NUCLEIC ACID AMPLIFICATION (HIV DNA/RNA) TESTING IS RECOMMENDED. Lab test performed by: [facility] [id number] [employer] [id number] MARIAH FORTE MD 07/30/2007 4:00 PM STEEL PLATE PRINTER [employer] CHEMISTRY ORDERABLES Edited Performing Organization Address City/[facility] Co de Phone Number INTERFACE SYSTEM Refer to clinic/hospital department * HEPATITIS B SURFACE ANTIGEN (07/30/2007 4:00 PM STEEL PLATE PRINTER) Pathologist [facility] HEPATITIS B SURFACE AG NON-REACTI VE NON-REACT DOM INTERFACE SYSTEM Comment: Lab test performed by: P[facility]ien [id number] [address] [employer] [id number] AMRIAH FORTE MD 07/30/2007 4:00 PM STEEL PLATE PRINTER [employer] CHEMISTRY ORDERABLES Edited Performing Organization Address City/[facility] Co de Phone Number INTERFACE SYSTEM Refer to clinic/hospital department * RUBELLA IGG (07/30/2007 4:00 PM STEEL PLATE PRINTER) Pathologist [facility] RUBELLA IGG 1.68 EIA Value INTERFAC E SYSTEM Comment: EIA VALUE EXPLANATION OF TEST RESULTS --------- <0.91 NEGATIVE - NO RUBELLA IGG ANTIBODY DETECTED. 0.91 - 1.09 EQUIVOCAL > OR = 1.10 POSITIVE - RUBELLA IGG ANTIBODY DETECTED. THE PRESENCE OF RUBELLA IGG ANTIBODY SUGGESTS IMMUNIZATION OR PAST OR CURRENT INFECTION WITH RUBELLA VIRUS. Lab test performed by: P[facility]ien [id number] [employer] [id number] MARIAH FORTE MD 07/30/2007 4:00 PM STEEL PLATE PRINTER us Kristine [employer] STREETCAR REPAIRER HELPER CHEMISTRY ORDERABLES Edited Performing Organization Address City/[facility] Co de Phone Number INTERFACE SYSTEM Refer to clinic/hospital department * RPR (07/30/2007 4:00 PM STEEL PLATE PRINTER) RPR NON-REACTI VE NON-REACT DOM INTERFACE SYSTEM Comment: Lab test performed by: Pazien [id number] [address] [employer] [id number] MARIAH FORTE MD 07/30/2007 4:00 PM STEEL PLATE PRINTER us Kristine Thom STREETCAR REPAIRER HELPER CHEMISTRY ORDERABLES Edited Performing Organization Address [facility] Phone Number INTERFACE SYSTEM Refer to clinic/hospital department * HEPATITIS C AB WITH CONFIRMATION BY RIBA (07/30/2007 4:00 PM STEEL PLATE PRINTER) HEPATITIS C AB NON-REACTI VE NON-REACT DOM INTERFACE SYSTEM SIGNAL TO CUT OFF 0.30 <1.00 INTERFACE SYSTEM Comment: Lab test performed by: Pazien [id number] [address]DA [employer] [phone] MARIAH FORTE MD 07/30/2007 4:00 PM STEEL PLATE PRINTER us Kristine [address] [place] STREETCAR REPAIRER HELPER CHEMISTRY ORDERABLES Edited Performing Organization Address City/[facility] Co de Phone Number INTERFACE SYSTEM Refer to clinic/hospital department documented in this encounter Visit Diagnoses Diagnosis Supervision of normal first - Primary documented in this encounter Care Teams Medical Social Worker Relationship Specialty Start Date End Date Matthew Zhong MD [address] [place] [phone] PCP - General Family Practice 09/21/24 documented as of this encounter
--- OUTSIDE RECORDS SUMMARY | 2025-05-07 05:20 | XMS_ITS | Encounter Summary ---
Author Organization [employer] Address [address] [place] [address] Care Team Providers Care Strap Cutting Machine Operator Name Role Phone Matthew Zhong MD Primary Care Provider [phone] Encounter Details Date Type Department Care Team (Late st Contact Info) Description 08/10/2007 Outpatient Historical [facility] Kristine Tomas, LAND[place] MAN [address] [address] Supervision of Other Normal (Primary Dx) Social History Tobacco Use Types Packs/Day Years Used Date Smoking Tobacco: Never Assessed Comments Unknown Sex and Gender Information Value Date Recorded Sex Assigned at Not on file Legal Sex Female 5:04 AM SOLUTION DIRECTOR Gender Identity Not on file Sexual Orientation Not on file documented as of this encounter Plan of Treatment Not on file documented as of this encounter Visit Diagnoses Diagnosis Supervision of other normal - Primary documented in this encounter Care Teams Strap Cutting Machine Operator Relationship Specialty Start Date End Date Matthew Zhong MD [address] [place] [phone] PCP - General Family Practice 09/21/24 documented as of this encounter
--- OUTSIDE RECORDS SUMMARY | 2025-05-07 05:20 | XMS_ITS | Encounter Summary ---
Author Organization [employer] Address 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 Gender Identity Not on file Sexual Orientation Not on file documented as of this encounter Plan of Treatment Not on file documented as of this encounter Procedures Procedure Name Priority Date/Time Associated Diagnosis Comments US PELVIS + TRANSVAG NON OB Stat 04/22/2008 3:00 PM CDT GC/CHLAMYDIA, GENITAL Routine 04/22/2008 2:55 PM CDT WET PREP GENITAL Stat 04/22/2008 2:55 PM CDT GRAM STAIN Stat 04/22/2008 2:55 PM CDT CBC WITH DIFFERENTIAL Stat 04/22/2008 2:25 PM CDT URINALYSIS WITH REFLEX CULTURE Stat 04/22/2008 2:17 PM CDT URINALYSIS W/REFLEX MICROSCOPIC Stat 04/22/2008 2:17 PM CDT URINE CULTURE Stat 04/22/2008 2:17 PM CDT HCG QUALITATIVE, URINE Stat 04/22/2008 2:17 PM CDT documented in this encounter Results * US PELVIS + TRANSVAG NON OB (04/22/2008 3:00 PM CDT) Anatomical Region Laterality Modality Pelvis Other 04/22/2008 3:00 PM CDT Narrative 04/22/2008 4:14 PM CDT [address] [address] Admit Date: 04/22/2008 CELAS OWENS Sex: F Admit Prov: ER, AUTHORIZED P Date: 1990 Primary Care Prov: AURELIA CASEY CMRN: [id number] Room: [facility] SSN: [id number] IMAGING SERVICES Ordering Prov: N/A Accession Number: [id number] Interpretation TRANSABDOMINAL/ENDOVAGINAL PELVIC ULTRASOUND, 04/22/2008 History: Pelvic pain. Findings: Uterus is midline being approximately 8.6 x 4.7 x approximately 6.1 cm. The endometrium is thickened and inhomogeneous, being 21 mm thickness. Please correlate with any reason clinically to suggest endometrial hyperplasia. Followup exam or endometrial sampling may be indicated given this appearance. Sonolucency centrally may be related to hemorrhage or fluid. Again correlation clinically is required. Right ovary is approximately 3.5 x 2 x 3.4 cm. Left ovary is not well seen on transabdominal exam, but is approximately 2.7 x 1.9 cm. On endovaginal exam it is approximately 2.4 x 3 x 3.6 cm. It is without specific abnormality. The right ovary demonstrates sonolucencies and measures approximately 4.9 x 3.5 x 4.3 cm on endovaginal exam. The largest sonolucency measures approximately 3.6 x 2.2 cm and the smaller septated area of 1.5 cm is seen. Followup to document resolution of these areas is recommended. Summary: 1. 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 Followup is recommended. 2. Cystic changes of the right ovary. Followup recommended. . Dictated by: ERIC LEWIS 04/22/2008 15:33 Electronically signed by: ERIC LEWIS 04/22/2008 16:13 Transcribed: 04/22/2008 15:51 SMM Procedure Note Eric Lewis DO - 04/22/[address] [address] Admit Date: 04/22/2008 JULES CELSA M Sex: F Admit Prov: TAYLOR YEPEZ Date: 1990 Primary Care Prov: JACINTO AURELIA Dinah CMRN: [id number] Room: [facility] SSN: [id number] IMAGING SERVICES Ordering Prov: N/A Interpretation TRANSABDOMINAL/ENDOVAGINAL PELVIC ULTRASOUND, 04/22/2008 History: Pelvic pain. Findings: Uterus is midline being approximately 8.6 x 4.7 xapproximately 6.1 cm. The endometrium is thickened and inhomogeneous, being 21 mm thickness. Please correlate with any reason clinically to suggest endometrial hyperplasia. Followup exam or endometrial sampling maybe indicated given this appearance. Sonolucency centrally may be relatedto hemorrhage or fluid. Again correlation clinically is required. Rightovary is approximately 3.5 x 2 x 3.4 cm. Left ovary is not well seen on transabdominal exam, but is approximately 2.7 x 1.9 cm. Onendovaginal exam it is approximately 2.4 x 3 x 3.6 cm. It is without specificabnormality. The right ovary demonstrates sonolucencies and measures approximately4.9 x 3.5 x 4.3 cm on endovaginal exam. The largest sonolucencymeasures approximately 3.6 x 2.2 cm and the smaller septated area of 1.5 cm isseen. Followup to document resolution of these areas is recommended. Summary: 1. Enlarged thickened endometrium, nonspecific and may be related tosome type of endometrial hypoplasia. Followup is recommended. 2. Cystic changes of the right ovary. Followup recommended. . Dictated by: ERIC LEWIS 04/22/2008 15:33 Electronically signed by: ERIC LEWIS 04/22/2008 16:13 Transcribed: 04/22/2008 15:51 SMM Schuyler Méndez MD US ORDERABLES Final Result * WET PREP GENITAL (04/22/2008 2:55 PM CDT) FINAL REPORT No Trichomonas seen. No yeast seen. [facility] Vaginal 04/22/2008 2:55 PM CDT 04/22/2008 3:21 PM CDT Narrative [facility] - 04/22/2008 3:36 PM CDT er 9 Schuyler Méndez MD MICROBIOLOGY - GENERAL ORDERABL ES Final Result Performing Organization Address City/[facility]/ZIP Co de Phone Number [facility] CLIA# [id number] [address] [place] [address] * GRAM STAIN (04/22/2008 2:55 PM CDT) FINAL REPORT Many epithelial cells seen Many Gram variable rods Rare Gram Positive Cocci Many WBC's seen [facility] Vaginal 04/22/2008 2:55 PM CDT 04/22/2008 3:21 PM CDT Narrative [facility] - 04/22/2008 4:11 PM CDT er 9 Schuyler Méndez MD MICROBIOLOGY - GENERAL ORDERABL ES Final Result Performing Organization Address City/[facility]/ZIP Co de Phone Number [facility] CLIA# [id number] [address] [place] [address] * GC AND CHLAMYDIA PROBE (04/22/2008 2:55 PM CDT) PRELIMINARY REPORT Pending [facility] FINAL REPORT No Neisseria gonorrhoeae detected. No Chlamydia trachomatis detected. [facility] Endocervical 04/22/2008 2:55 PM CDT 04/22/2008 6:[address] [facility] - 04/25/2008 2:06 PM CDT er 9 All identification methods for Chlamydia trachomatis and Neisseria gonorrhoeae can yield false positive results. In circumstances where diagnosis could lead to adverse psychosocial impacts, additional testing is recommended. A negative test result does not exclude infection. Consultation with the lab is recommended whenever the test result is negative and the clinical indications strongly suggest Chlamydial or Gonorrhoeal infection. Culture is the only recommended procedure for diagnosing Chlamydial or Gonorrhoeal infection in cases of suspected child abuse. All identification methods for Chlamydia trachomatis and Neisseria gonorrhoeae can yield false positive results. In circumstances where diagnosis could lead to adverse psychosocial impacts, additional testing is recommended. A negative test result does not exclude infection. Consultation with the lab is recommended whenever the test result is negative and the clinical indications strongly suggest Chlamydial or Gonorrhoeal infection. Culture is the only recommended procedure for diagnosing Chlamydial or Gonorrhoeal infection in cases of suspected child abuse. Schuyler Méndez MD [employer] - GEN ORDERABLES COM Bessie FotoSwipe Result [facility] CLIA# [id number] [address] [place] [address] * (ABNORMAL) CBC WITH DIFFERENTIAL (04/22/2008 2:25 PM CDT) RDW-STDEV 40.0 37.1 - 48.7 fL [facility] RBC 4.91(H) 3.90 - 4.90 M/uL [facility] MCHC 35.5 31.5 - 35.5 % [facility] PLATELETS 212 140 - 350 K/uL [facility] MCV 90.0 82.0 - 99.0 fL [facility] HEMOGLOBIN 15.7(H) 11.8 - 14.8 g/dL [facility] RDW 12.3 11.5 - 14.5 % [facility] WBC 10.4(H) 4.0 - 9.8 K/uL [facility] MCH 32.0 27.2 - 32.6 pg [facility] MPV 10.5 9.3 - 12.4 fL [facility] HEMATOCRIT 44.2(H) 35.5 - 44.0 % [facility] LYMPHOCYTES 32 16 - 45 % [facility] LYMPHOCYTE ABSOLUTE 3.35 0.70 - 4.50 K/uL [facility] BASOPHILS 0 0 - 2 % [facility] BASOPHILS ABSOLUTE 0.01 0.00 - 0.20 K/uL [facility] MONOCYTES 7 3 - 13 % [facility] MONOCYTE ABSOLUTE 0.77 0.10 - 1.30 K/uL [facility] NEUTROPHILS 59 45 - 70 % [facility] NEUTROPHIL ABSOLUTE 6.19 1.90 - 7.00 K/uL [facility] EOSINOPHILS 1 0 - 7 % [facility] EOSINOPHIL ABSOLUTE 0.09 0.00 - 0.70 K/uL [facility] Blood specimen (specimen) 04/22/2008 2:25 PM CDT 04/22/2008 2:40 PM CDT Narrative INTERFACE SYSTEM - 04/22/2008 2:49 PM CDT er 9 us Schuyler Méndez MD HEMATOLOGY ORDERABLES Edited INTERFACE SYSTEM Refer to clinic/hospital department [facility] CLIA# [id number] [address] [place] [address] * URINE CULTURE (04/22/2008 2:17 PM CDT) PRELIMINARY REPORT Pending [facility] FINAL REPORT 50-100,000 colonies/mL Polymicrobial growth consistent with normal urethral rui [facility] 04/22/2008 2:17 PM CDT 04/22/2008 5:42 PM CDT us Schuyler Méndez MD MICROBIOLOGY - GENERAL ORDERABL ES Final Result Performing Organization Address City/[facility]/ZIP Co de Phone Number [facility] CLIA# [id number] [address] [place] [address] * (ABNORMAL) URINALYSIS (04/22/2008 2:17 PM CDT) GLUCOSE UA Negative Negative [facility] COLOR UA Pale Yellow [facility] BILIRUBIN UA Negative Negative [facility] PH UA 6.0 5.0 - 8.0 [facility] LEUKOCYTE ESTERASE UA 2+(A) Negative [facility] KETONES UA Negative Negative [facility] CLARITY UA Slt. Cloudy(A) Clear [facility] NITRITE UA Negative Negative [facility] BLOOD UA Negative Negative [facility] UROBILINOGEN UA <1 <1 mg/dL [facility] SPECIFIC GRAVITY UA 1.025 1.001 - 1.035 [facility] PROTEIN UA Negative Negative [facility] EPITHELIAL CELLS, URINE 2-5 /HPF [facility] WBC UA 0-5 0 - 5 /HPF [facility] RBC UA 0-2 0 - 2 /HPF [facility] AMORPHOUS PHOSPHATES, URINE Few /HPF [facility] BACTERIA UA 1+(A) None Seen /HPF [facility] 04/22/2008 2:17 PM CDT 04/22/2008 2:41 PM CDT us Schuyler Méndez MD URINE ORDERABLES Edited [facility] CLIA# [id number] [address] [place] [address] * URINALYSIS WITH REFLEX CULTURE (04/22/2008 2:17 PM CDT) URINE CULTURE ORDER Culture ordered [facility] Comment: Criteria for a reflex culture include one or more of the following: Abnormal WBCs, RBCs or bacteria. Lack of qualifying criteria does not exclude the possibility of a urinary tract infection. Dilute urine, drug interference, etc. may decrease the sensitivity of the criteria analytes. Urine specimen (specimen) 04/22/2008 2:17 PM CDT 04/22/2008 2:41 PM CDT Narrative [facility] - 04/22/2008 2:56 PM CDT er 9 Schuyler Méndez MD URINE ORDERABLES Final Result Performing Organization Address City/[facility]/ZIP Co de Phone Number [facility] CLIA# [id number] [address] [place] [address] * HCG QUALITATIVE, URINE (04/22/2008 2:17 PM CDT) HCG QUAL URINE Negative Negative [facility] SPECIFIC GRAVITY UA 1.025 1.001 - 1.035 [facility] Urine specimen (specimen) 04/22/2008 2:17 PM CDT 04/22/2008 2:41 PM CDT Narrative [facility] - 04/22/2008 2:55 PM CDT er 9 Schuyler Méndez MD URINE ORDERABLES Final Result [facility] CLIA# [id number] [address] [place] [address] documented in this encounter Visit Diagnoses Not on filedocumented in this encounter Care Teams Media Center Assistant Relationship Specialty Start Date End Date Matthew Zhong MD [address] [place] [phone] PCP - General Family Practice 09/21/24 documented as of this encounter
--- OUTSIDE RECORDS SUMMARY | 2025-05-07 05:20 | XMS_ITS | Encounter Summary ---
Author Organization [facility] Address [address] [place] [address] Care Team Providers Care Quality Eng Name Role Phone Matthew Zhong MD Primary Care Provider [phone] Encounter Details Date Type Department Care Team ([facility] st Contact Info) Description 07/30/2007 Outpatient Historical [facility] [place] [address] [place] [phone] Diomedes Casarez MD 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
--- OUTSIDE RECORDS SUMMARY | 2025-05-07 05:20 | XMS_ITS | Encounter Summary ---
Author Organization [facility] Address [address] [place] [address] Care Team Providers Care Script Reader Name Role Phone Matthew Zhong MD Primary Care Provider [phone] Encounter Details Date Type Department Care Team (Late st Contact Info) Description 08/10/2007 Outpatient Historical [facility] Maternal and Ground Floor S Formerly [facility], [facility] [address] [place] [phone] Santos Awan MD NO ADDRESS ON FILE Social History Tobacco Use Types Packs/Day Years Used Date Smoking Tobacco: Never Assessed Comments Unknown Sex and Gender Information Value Date Recorded Sex Assigned at Not on file 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
--- OUTSIDE RECORDS SUMMARY | 2025-05-07 05:20 | XMS_ITS | Encounter Summary ---
Author Organization [facility] Address [address] [place] [address] Care Team Providers Care Manifold Builder Name Role Phone Matthew Zhong MD Primary Care Provider [phone] Encounter Details Date Type Department Care Team (Late st Contact Info) Description 04/11/2008 Outpatient Historical [facility] [address] [place] [phone] Diomedes Casarez MD 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
--- OUTSIDE RECORDS SUMMARY | 2025-05-07 05:20 | XMS_ITS | Encounter Summary ---
Author Organization [facility] Address [address] [place] [address] Care Team Providers Care Tar Man Name Role Phone Matthew Zhong MD Primary Care Provider [phone] Encounter Details Date Type Department Care Team (Late st Contact Info) Description 09/25/2007 Outpatient Historical [facility] [place] [address] [place] [phone] Diomedes Casarez MD 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
--- OUTSIDE RECORDS SUMMARY | 2025-05-07 05:20 | XMS_ITS | Encounter Summary ---
Author Organization [facility] Address [address] [place] [address] Care Team Providers Care Crew Mess Attendant Name Role Phone Matthew Zhong MD Primary Care Provider [phone] Encounter Details Date Type Department Care Team (Late st Contact Info) Description 04/08/2008 Outpatient Historical [facility] [address] [place] [phone] Diomedes Casarez MD 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
--- OUTSIDE RECORDS SUMMARY | 2025-05-07 05:20 | XMS_ITS | Encounter Summary ---
Author Organization [facility] Address [address] [place] [address] Care Team Providers Care Civil Technician Name Role Phone Matthew Zhong MD Primary Care Provider [phone] Encounter Details Date Type Department Care Team (Late st Contact Info) Description 06/30/2007 Emergency [facility] Junior Renee MD [address] [place] [address] [address] Xavier [place] [id number] Other Current Maternal Conditions Classifiable Elsewhere, Antepartum (Primary Dx); Abdominal Pain, Unspecified Site; Other Acute Pain Social History Tobacco Use Types Packs/Day Years Used Date Smoking Tobacco: Never Assessed Comments Unknown Sex and Gender Information Value Date Recorded Sex Assigned at Not on file 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 Gender Identity Not on file Sexual Orientation Not on file documented as of this encounter Plan of Treatment Not on file documented as of this encounter Procedures Procedure Name Priority Date/Time Associated Diagnosis Comments URINALYSIS W/REFLEX MICROSCOPIC Routine 06/30/2007 9:00 PM CDT URINALYSIS W/REFLEX MICROSCOPIC Routine 06/30/2007 9:00 PM CDT documented in this encounter Results * (ABNORMAL) URINALYSIS (06/30/2007 9:00 PM CDT) WBC UA 0-5 0 - 5 /HPF INTERFACE SYSTEM RBC UA 0-2 0 - 2 /HPF INTERFACE SYSTEM BACTERIA UA 1+(A) None Seen /HPF INTERFACE SYSTEM EPITHELIAL CELLS, URINE 2-5 /HPF INTERFACE SYSTEM AMORPHOUS PHOSPHATES, URINE Moderate /HPF INTERFACE SYSTEM 06/30/2007 9:00 PM CDT Junior Renee MD URINE ORDERABLES Edited Performing Organization Address [facility] [place] [facility] Co de Phone Number INTERFACE SYSTEM Refer to clinic/hospital department * (ABNORMAL) URINALYSIS (06/30/2007 9:00 PM CDT) MACRO COMMENT Culture in Progress INTERFACE SYSTEM COLOR UA Yellow INTERFACE SYSTEM CLARITY UA Slt. Cloudy(A) Clear INTERFACE SYSTEM SPECIFIC GRAVITY UA 1.010 1.001 - 1.035 INTERFACE SYSTEM PH UA 7.0 5.0 - 8.0 INTERFACE SYSTEM LEUKOCYTE ESTERASE UA Negative Negative INTERFACE SYSTEM NITRITE UA Negative Negative INTERFACE SYSTEM PROTEIN UA Negative Negative INTERFACE SYSTEM GLUCOSE UA Negative Negative INTERFACE SYSTEM KETONES UA Negative Negative INTERFACE SYSTEM UROBILINOGEN UA <1 <1 mg/dL INTE RFACE SYSTEM BILIRUBIN UA Negative Negative INTERFA CE SYSTEM BLOOD UA Negative Negative INTERFACE SYSTEM 06/30/2007 9:00 PM CDT Junior Renee MD URINE ORDERABLES Edited Performing Organization Address [facility] [place] [facility] Phone Number INTERFACE SYSTEM Refer to clinic/hospital department documented in this encounter Visit Diagnoses Diagnosis Other current maternal conditions classifiable elsewhere, antepartum- Primary Abdominal pain, unspecified site Other acute pain documented in this encounter Care Teams Civil Technician Relationship Specialty Start Date End Date Matthew Zhong MD [address] [place] [phone] PCP - General Family Practice 09/21/24 documented as of this encounter
--- NOTE | 2025-05-07 05:39 | ED.GENADULT ---
HPI - General Adult General Chief complaint: Unspecified Stated complaint: maybe hemorrhoids Related Data Home Medications ?Medication ?Instructions ?Recorded ?Confirmed ?Last Taken ?Type No Home Medications 12/31/22 05/07/25 Unknown History Allergies Allergy/AdvReac Type Severity Reaction Status Date / Time No Known Allergies Allergy Mild Verified 05/07/25 05:32 Course Vital Signs Vital signs: Vital Signs Temperature 36.4 C L 05/07/25 05:18 Pulse Rate 88 05/07/25 05:18 Respiratory Rate 18 05/07/25 05:18 Blood Pressure 123/84 05/07/25 05:18 Pulse Oximetry 98 05/07/25 05:18 Oxygen Delivery Room Air 05/07/25 05:18 Temperature 36.4 C L 05/07/25 05:18 Pulse Rate 88 05/07/25 05:18 Respiratory Rate 18 05/07/25 05:18 Blood Pressure 123/84 05/07/25 05:18 Pulse Oximetry 98 05/07/25 05:18 Oxygen Delivery Room Air 05/07/25 05:18 Medical Decision Making Vital Signs Vital Signs: Vital Signs Temperature 36.4 C L 05/07/25 05:18 Pulse Rate 88 05/07/25 05:18 Respiratory Rate 18 05/07/25 05:18 Blood Pressure 123/84 05/07/25 05:18 Pulse Oximetry 98 05/07/25 05:18 Oxygen Delivery Room Air 05/07/25 05:18 Temperature 36.4 C L 05/07/25 05:18 Pulse Rate 88 05/07/25 05:18 Respiratory Rate 18 05/07/25 05:18 Blood Pressure 123/84 05/07/25 05:18 Pulse Oximetry 98 05/07/25 05:18 Oxygen Delivery Room Air 05/07/25 05:18 Discharge Plan Discharge Clinical Impression: Hemorrhoids Patient Disposition: Home Condition: Stable Instructions: Antibiotic Form Patient Language: Yakut Prescriptions: No Action No Home Medications Follow-up/Referrals: Citlaly,GEORGINA Beavers [Primary Care Provider] -
--- NOTE | 2025-05-07 05:40 | ED_ITS ---
HPI - GI Bleed General Chief complaint: Unspecified Stated complaint: maybe hemorrhoids Source: patient Mode of arrival: ambulatory Limitations: no limitations History of Present Illness HPI Narrative: Patient is a 34-year-old female with rectal pain and a sensation of continued stool after complete. Patient feels discomfort around the rectum and a bulging area as well. She has been having this problem for many months. There has been blood on the toilet paper. No family history of colon cancer. MD complaint: blood on toilet paper Onset (ago): month(s) ( Six) Pain Consistency: constant Severity: moderate Relieving factors: none Exacerbating factors: none Context: other ( none) Associated symptoms: denies other symptoms Treatments Prior to Arrival: topical ointment and suppositories Related Data Home Medications ?Medication ?Instructions ?Recorded ?Confirmed ?Last Taken ?Type No Home Medications 12/31/22 05/07/25 Unknown History Allergies Allergy/AdvReac Type Severity Reaction Status Date / Time No Known Allergies Allergy Mild Verified 05/07/25 05:32 Review of Systems Review of Systems: All systems reviewed & are unremarkable except as noted in HPI and below Constitutional: Constitutional: Reports no additional constitutional complaints Eyes: Eyes: Reports no additional eye complaints ENT: Reports system reviewed and no additional complaints, except as documented Cardiovascular: Cardiovascular: Reports no additional cardiovascular complaints Respiratory: Respiratory: Reports no additional respiratory complaints Gastrointestinal: Gastrointestinal: Reports no additional gastrointestinal complaints Genitourinary: Genitourinary: Reports no additional female genitourinary complaints Musculoskeletal: Musculoskeletal: Reports no additional musculoskeletal complaints Integumentary/Breasts: Skin/Breast: Reports system reviewed and no additional complaints, except as docu Neurologic: Reports system reviewed and no additional complaints, except as documented Psychiatric: Psychiatric: Reports no additional psychiatric complaints Endocrine: Endocrine: Reports no additional endocrine complaints Hematologic/Lymphatic: Hematologic/Lymphatic: Reports no additional hematologic/lymphatic complaints Allergic/Immunologic: Allergic/Immunologic: Reports no additional allergic/immunologic complaints Exam Const: General: healthy appearing Nutritional Appearance: well nourished Orientation/consciousness: patient oriented x3 HENMT: Head: normal to inspection Ears: external ears normal Face/Nose/Sinus: Normal external nose present Eyes: Conjunctivae: conjunctivae normal Pupils: Equal, round and reactive pupils present EOM: EOMs intact bilaterally Direct Ophthalmoscopy: no photophobia Neck: Neck: normal visual inspection Chest: Chest palpation & inspection: normal inspection of the chest Resp: Effort & Inspection: normal respiratory effort and not labored Auscultation: clear to auscultation bilaterally and no crackles Cardio: Rate: regular rate Rhythm: regular rhythm Heart sounds: no murmurs GI: Inspection: non-distended GI Palp: Yes Soft to palpation, No Tenderness to palpation present (GI) and Yes Guarding due to palpation present (GI) Auscultation: normal bowel sounds Other: female trauma counsellor Kristine present for the entire exam to look at patient's rectum and anus; area was cleaned and examination done; no external abnormality seen of the rectum; only small internal hemorrhoids appreciated on examination without thrombosis or rectal masses : General: Yes bladder normal to palpation Back/Spine/Pelvis: Back: no CVA tenderness Skin: General skin exam: normal color Rashes: no rashes Wounds: no wounds Neuro: General: patient oriented x3, moves all extremities and no meningeal signs Cranial nerves: Yes Nystagmus not present Speech: normal speech Extrem: General: normal to inspection, no clubbing, cyanosis or edema and no pedal edema Psych: Mental Status: mental status grossly normal Affect: normal affect Attitude: cooperative Course Vital Signs Vital signs: Vital Signs Temperature 36.4 C L 05/07/25 05:18 Pulse Rate 88 05/07/25 05:18 Respiratory Rate 18 05/07/25 05:18 Blood Pressure 123/84 05/07/25 05:18 Pulse Oximetry 98 05/07/25 05:18 Oxygen Delivery Room Air 05/07/25 05:18 Temperature 36.4 C L 05/07/25 05:18 Pulse Rate 88 05/07/25 05:18 Respiratory Rate 18 05/07/25 05:18 Blood Pressure 123/84 05/07/25 05:18 Pulse Oximetry 98 05/07/25 05:18 Oxygen Delivery Room Air 05/07/25 05:18 MDM - GI Bleed MDM Narrative Medical decision making narrative: patient is a 34-year-old female with rectal discomfort and appearance of hemorrhoid on examination. Today we examined the rectum with a female nurse Kristine. Further I will make suggestions such as Sitz baths or Epsom salt bath. She may need to see a rectal surgeon if continued problems. Discharge Plan Discharge Clinical Impression: Hemorrhoids Qualifiers: Hemorrhoid type: unspecified Qualified Code(s): K64.9 - Unspecified hemorrhoids Patient Disposition: Home Condition: Stable Instructions: Antibiotic Form Additional Instructions: please use stool softeners but not laxatives daily. Please make a Sitz bath or Epsom salt bath. Patient Language: Ghanaian Prescriptions: No Action No Home Medications Follow-up/Referrals: Citlaly,GEORGINA Beavers [Primary Care Provider] - Time of Disposition: 06:19
== END 2025-05-07 06:25 | disposition home or self-care (01) ==
PROVIDERS: Emergency Provider Emergency Medicine; PCP Physician Assistant
DX: K64.9 Unspecified hemorrhoids (principal)
CPT/HCPCS: 99281